=== PATIENT | male | born 1995 | race Caucasian/White ===

== ENCOUNTER 2019-05-01 14:22 | Emergency (ER) | payer BC ==
[~2019-05-01] VITALS: Ht 185.4 cm; Wt 79.6 kg
[2019-05-01 14:29] VITALS: BP 119/68
[2019-05-01] MEDS ORDERED: LIDOCAINE-MPF 1%, 2ML ONE ×2 (14:49→16:04)
[2019-05-01] MEDS ORDERED: LIDOCAINE-MPF 1%, 5ML INFIL ONE (15:00)
[2019-05-01] MEDS ORDERED: CEPHALEXIN 500 MG CAPSULE PO ONE (15:00)
--- NOTE | 2019-05-01 15:13 | NUR ---
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
[2019-05-01] MEDS ORDERED: DIPH,PERTUSS(ACELL),TET VAC/PF 0.5 ML IM-VACC ONE ×2 (16:00→16:46)
--- NOTE | 2019-05-01 16:08 | NUR ---
ADDITIONAL XYLOCAINE 1% 2ML VIAL X 3 GIVEN TO PROVIDER PER VO.
[2019-05-01] MEDS ORDERED: BACITRACIN ZINC OINT 500U/GM, 0.9 GM ONE (16:33)
[2019-05-01] MEDS ORDERED: CEPHALEXIN 500 MG CAPSULE ONE (16:45)
== END 2019-05-01 17:05 | disposition home or self-care (01) ==
LOC: ED 16:40
DX: S81.812A Laceration without foreign body, left lower leg, initial encounter (principal); V09.9XXA Pedestrian injured in unspecified transport accident, initial encounter; Y93.55 Activity, bike riding; Y92.328 Other athletic field as the place of occurrence of the external cause; Y99.8 Other external cause status
CPT/HCPCS: 12032; 90471; 90715